=== PATIENT | female | born 1935 | race Caucasian/White ===

== ENCOUNTER 2018-04-09 17:03 | Inpatient (IN) | payer MEDICARE, MEDICAID ==
[~2018-04-09] VITALS: Ht 160 cm; Wt 79.2 kg
[~2018-04-09 17:03] MED LIST: ASPI-621 PO; ATOR10TA9 PO; FLUT1DIS3 INH; FLUT9.9S NAS; FOLI-17 PO; GABA300C10 PO; HYDR-3240 PO; LISI-167 PO; LORA10TA62 PO; MULT-6 PO; NYST1000 PO; OMEP40CA6 PO; OXYB5TAB7 PO; TRAZ150T62 PO; VENL150T PO
[2018-04-09] MEDS ORDERED: ALBUTEROL/IPRATROPIUM 2.5MG/0.5MG, 3 ML ONE ×2 (17:32→17:58)
[2018-04-09] MEDS: ALBUTEROL/IPRATROPIUM 2.5MG/0.5MG, 3 ML NPPB SCH (17:37)
[2018-04-09 17:54] LABS: BASOPHILS # (AUTO) 0.03 x10^3/uL (0-0.1); BASOPHILS % (AUTO) 0 % (0-1); EOSINOPHILS # (AUTO) 0.04 x10^3/uL (0-0.4); EOSINOPHILS % (AUTO) 0 % (1-7); LYMPHOCYTES # (AUTO) 1.42 x10^3/uL (1-3.4); LYMPHOCYTES % (AUTO) 11 % (22-44); MD NO; MEAN CORPUSCULAR HEMOGLOBIN 33.5 pg (27.0-34.8); MEAN CORPUSCULAR HGB CONC 33.8 g/dL (32.4-35.8); MEAN CORPUSCULAR VOLUME 98.9 fL (80-100); MEAN PLATELET VOLUME 6.9 fL (7.4-10.4); MONOCYTES # (AUTO) 1.31 x10^3/uL (0.2-0.8); MONOCYTES % (AUTO) 10 % (2-9); NEUTROPHILS % (AUTO) 78 % (42-75); PLATELET COUNT 510 x10^3/uL (130-400); RED BLOOD COUNT 3.74 x10^6/uL (3.82-5.3); RED CELL DISTRIBUTION WIDTH 13.5 % (9.6-15.2)
[2018-04-09 17:57] LABS: ALANINE AMINOTRANSFERASE 18 U/L (12-78); ALBUMIN 3.1 g/dL (3.4-5.0); ANION GAP 10 mmol/L (5-15); CALCIUM 8.6 mg/dL (8.5-10.1); CHLORIDE 100 mmol/L (98-107); CREATININE 1.21 mg/dL (0.55-1.02)
[2018-04-09] MEDS ORDERED: CEFTRIAXONE 1,000 MG in SODIUM CHLORIDE 0.9% 50 ML IV ONE (18:00)
[2018-04-09] MEDS ORDERED: SODIUM CHLORIDE 0.9% 1,000ML IVBOLUS ONE (18:00)
[2018-04-09] MEDS ORDERED: AZITHROMYCIN 500 MG in SODIUM CHLORIDE 0.9% 250 ML IV ONE (18:00)
[2018-04-09 18:01] LABS: ALKALINE PHOSPHATASE 101 U/L (45-117); BILIRUBIN,TOTAL 0.4 mg/dL (0.2-1.0); TOTAL PROTEIN 8.1 g/dL (6.4-8.2); TROPONIN I < 0.015 ng/mL (0.000-0.045)
[2018-04-09] MEDS ORDERED: CEFTRIAXONE PMX 1GM/50ML 50 ML ONE (18:05)
[2018-04-09] MEDS ORDERED: GUAIFENESIN/DM 200-20MG, 10ML UDC PO PRN (20:00)
[2018-04-09] MEDS ORDERED: ACETAMINOPHEN 325 MG TABLET PO PRN (20:00)
[2018-04-09] MEDS ORDERED: ONDANSETRON ODT 4 MG PO PRN (20:00)
[2018-04-09] MEDS ORDERED: POLYETHYLENE GLYCOL 17 GM PACKET PO PRN (20:00)
[2018-04-09] MEDS ORDERED: ENALAPRILAT 1.25 MG/ML, 2ML IVPush PRN (20:00)
[2018-04-09] MEDS ORDERED: NYSTATIN 500,000 UNITS/5 ML UDC PO SCH (20:30)
[2018-04-09] MEDS ORDERED: ALBUTEROL SULFATE 2.5 MG/3 ML NPPB PRN (20:30)
[2018-04-09] MEDS: ALBUTEROL/IPRATROPIUM 2.5MG/0.5MG, 3 ML HHN SCH (20:30)
[2018-04-09] MEDS ORDERED: FLUTICASONE NASAL SPRAY 16GM NAS SCH (21:00)
[2018-04-09] MEDS ORDERED: ATORVASTATIN 10 MG TABLET PO SCH (21:00)
[2018-04-09] MEDS: TRAZODONE 150MG TABLET PO SCH (21:07)
[2018-04-09] MEDS: SODIUM CHLORIDE 0.9% 1,000 ML IV SCH (21:07)
[2018-04-09] MEDS: HEPARIN 5,000 UNITS/ML, 1ML SQ SCH (21:08)
[2018-04-09 21:46] VITALS: BP 111/51
[2018-04-09] MEDS: methylPREDNISolone SOD SUCC 125 MG/2 ML IVPush SCH (23:22)
[2018-04-10] MEDS: ALBUTEROL/IPRATROPIUM 2.5MG/0.5MG, 3 ML HHN SCH ×5 (02:42→19:54)
[2018-04-10 03:10] VITALS: BP 94/50
[2018-04-10] MEDS: HEPARIN 5,000 UNITS/ML, 1ML SQ SCH ×3 (04:42→20:07)
[2018-04-10] MEDS: methylPREDNISolone SOD SUCC 125 MG/2 ML IVPush SCH ×2 (04:42→11:14)
[2018-04-10 04:45] LABS: BASOPHILS # (AUTO) 0.01 x10^3/uL (0-0.1); BASOPHILS % (AUTO) 0 % (0-1); EOSINOPHILS % (AUTO) 0 % (1-7); LYMPHOCYTES # (AUTO) 0.88 x10^3/uL (1-3.4); LYMPHOCYTES % (AUTO) 12 % (22-44); MD NO; MEAN CORPUSCULAR HEMOGLOBIN 33.7 pg (27.0-34.8); MEAN CORPUSCULAR HGB CONC 33.8 g/dL (32.4-35.8); MEAN CORPUSCULAR VOLUME 99.7 fL (80-100); MEAN PLATELET VOLUME 6.5 fL (7.4-10.4); MONOCYTES # (AUTO) 0.14 x10^3/uL (0.2-0.8); MONOCYTES % (AUTO) 2 % (2-9); NEUTROPHILS # (AUTO) 6.42 x10^3/uL (1.8-6.8); NEUTROPHILS % (AUTO) 86 % (42-75); PLATELET COUNT 423 x10^3/uL (130-400); RED BLOOD COUNT 3.06 x10^6/uL (3.82-5.3)
[2018-04-10 04:51] LABS: ANION GAP 8 mmol/L (5-15); CALCIUM 7.9 mg/dL (8.5-10.1); CHLORIDE 107 mmol/L (98-107)
[2018-04-10 04:52] LABS: CREATININE 1.17 mg/dL (0.55-1.02)
[2018-04-10] MEDS: SODIUM CHLORIDE 0.9% 1,000 ML IV SCH ×2 (07:01→16:05)
[2018-04-10 07:20] LABS: MICROSCOPIC INDICATED
[2018-04-10 07:24] VITALS: BP 96/54
[2018-04-10 07:30] LABS: CULTURE INDICATED? YES
[2018-04-10] MEDS: BUDESONIDE 0.5 MG/2 ML INHA NPPB SCH ×2 (08:40→19:54)
[2018-04-10] MEDS: SENNA/DOCUSATE TABLET PO SCH (09:00)
[2018-04-10] MEDS ORDERED: HYDROcodone/APAP 5/325 TABLET PO SCH (09:00)
[2018-04-10] MEDS ORDERED: OXYBUTYNIN CHLORIDE 5 MG TABLET PO SCH (09:00)
[2018-04-10] MEDS ORDERED: LORATADINE 10 MG TABLET PO SCH (09:00)
[2018-04-10] MEDS ORDERED: LISINOPRIL 10 MG TABLET PO SCH (09:00)
[2018-04-10] MEDS: AZITHROMYCIN 250 MG TABLET PO SCH (09:00)
[2018-04-10] MEDS ORDERED: FLUTICASONE/VILANTEROL 100-25MCG/INH INH SCH (09:00)
[2018-04-10] MEDS: OMEPRAZOLE 20 MG CAPSULE.DR PO SCH (11:13)
[2018-04-10] MEDS: VENLAFAXINE 75 MG CAP ER PO SCH (11:13)
[2018-04-10] MEDS: FOLIC ACID 1 MG TABLET PO SCH (11:13)
[2018-04-10] MEDS: GABAPENTIN 300 MG CAPSULE PO SCH (11:13)
[2018-04-10] MEDS: MULTIVITAMIN 1 TABLET PO SCH (11:13)
[2018-04-10] MEDS: ASPIRIN 81 MG TABLET EC PO SCH (11:13)
[2018-04-10 12:35] VITALS: BP 99/65
[2018-04-10 18:57] VITALS: BP 109/57
[2018-04-10] MEDS: TRAZODONE 150MG TABLET PO SCH (19:39)
[2018-04-10] MEDS: CEFDINIR 300 MG CAPSULE PO SCH (19:39)
[2018-04-10] MEDS ORDERED: CEFTRIAXONE 1,000 MG IM SCH (20:30)
[2018-04-10 20:54] LABS: RAPID INFLUENZA A Negative (Negative); RAPID INFLUENZA B Negative (Negative)
[2018-04-11] MEDS: SODIUM CHLORIDE 0.9% 1,000 ML IV SCH ×2 (01:53→09:19)
[2018-04-11 02:36] VITALS: BP 138/74
[2018-04-11] MEDS: ALBUTEROL/IPRATROPIUM 2.5MG/0.5MG, 3 ML HHN SCH ×4 (03:00→19:59)
[2018-04-11] MEDS: HEPARIN 5,000 UNITS/ML, 1ML SQ SCH ×3 (04:13→21:40)
[2018-04-11 07:06] VITALS: BP 110/64
[2018-04-11] MEDS: SENNA/DOCUSATE TABLET PO SCH (09:17)
[2018-04-11] MEDS: FOLIC ACID 1 MG TABLET PO SCH (09:17)
[2018-04-11] MEDS: MULTIVITAMIN 1 TABLET PO SCH (09:17)
[2018-04-11] MEDS: ASPIRIN 81 MG TABLET EC PO SCH (09:17)
[2018-04-11] MEDS: GABAPENTIN 300 MG CAPSULE PO SCH (09:17)
[2018-04-11] MEDS: VENLAFAXINE 75 MG CAP ER PO SCH (09:17)
[2018-04-11] MEDS: CEFDINIR 300 MG CAPSULE PO SCH ×2 (09:18→21:33)
[2018-04-11] MEDS: AZITHROMYCIN 250 MG TABLET PO SCH (09:18)
[2018-04-11] MEDS: OMEPRAZOLE 20 MG CAPSULE.DR PO SCH (09:18)
[2018-04-11] MEDS: BUDESONIDE 0.5 MG/2 ML INHA NPPB SCH ×2 (09:45→19:59)
[2018-04-11 12:59] VITALS: BP 116/71
[2018-04-11 18:46] VITALS: BP 148/80
[2018-04-11] MEDS: TRAZODONE 150MG TABLET PO SCH (21:33)
[2018-04-12 01:52] VITALS: BP 147/78
[2018-04-12] MEDS: ALBUTEROL/IPRATROPIUM 2.5MG/0.5MG, 3 ML HHN SCH ×5 (02:39→23:10)
[2018-04-12] MEDS: HEPARIN 5,000 UNITS/ML, 1ML SQ SCH ×2 (06:09→15:53)
[2018-04-12] MEDS: BUDESONIDE 0.5 MG/2 ML INHA NPPB SCH ×2 (07:05→19:03)
[2018-04-12 08:21] VITALS: BP 149/82
[2018-04-12] MEDS: SENNA/DOCUSATE TABLET PO SCH (09:00)
[2018-04-12] MEDS: VENLAFAXINE 75 MG CAP ER PO SCH (10:48)
[2018-04-12] MEDS: FOLIC ACID 1 MG TABLET PO SCH (10:48)
[2018-04-12] MEDS: MULTIVITAMIN 1 TABLET PO SCH (10:49)
[2018-04-12] MEDS: ASPIRIN 81 MG TABLET EC PO SCH (10:49)
[2018-04-12] MEDS: OMEPRAZOLE 20 MG CAPSULE.DR PO SCH (10:49)
[2018-04-12] MEDS: GABAPENTIN 300 MG CAPSULE PO SCH (10:49)
[2018-04-12] MEDS: CEFDINIR 300 MG CAPSULE PO SCH ×2 (10:49→20:46)
[2018-04-12] MEDS: BENZONATATE 100 MG CAPSULE PO SCH ×3 (10:49→20:46)
[2018-04-12] MEDS: AZITHROMYCIN 250 MG TABLET PO SCH (10:54)
[2018-04-12 14:22] LABS: BASOPHILS # (AUTO) 0.02 x10^3/uL (0-0.1); BASOPHILS % (AUTO) 0 % (0-1); EOSINOPHILS % (AUTO) 0 % (1-7); LYMPHOCYTES # (AUTO) 0.85 x10^3/uL (1-3.4); LYMPHOCYTES % (AUTO) 9 % (22-44); MD NO; MEAN CORPUSCULAR HEMOGLOBIN 32.3 pg (27.0-34.8); MEAN CORPUSCULAR VOLUME 97.9 fL (80-100); MEAN PLATELET VOLUME 6.2 fL (7.4-10.4); MONOCYTES # (AUTO) 0.77 x10^3/uL (0.2-0.8); MONOCYTES % (AUTO) 8 % (2-9); NEUTROPHILS # (AUTO) 8.06 x10^3/uL (1.8-6.8); NEUTROPHILS % (AUTO) 83 % (42-75); PLATELET COUNT 504 x10^3/uL (130-400); RED BLOOD COUNT 3.14 x10^6/uL (3.82-5.3)
[2018-04-12 14:32] LABS: ANION GAP 8 mmol/L (5-15); CALCIUM 8.7 mg/dL (8.5-10.1); CHLORIDE 110 mmol/L (98-107); CREATININE 1.15 mg/dL (0.55-1.02)
[2018-04-12 19:22] VITALS: BP 112/70
[2018-04-12] MEDS: TRAZODONE 150MG TABLET PO SCH (20:46)
[2018-04-13] MEDS: HEPARIN 5,000 UNITS/ML, 1ML SQ SCH ×3 (01:21→17:05)
[2018-04-13 01:23] VITALS: BP 160/89
[2018-04-13 06:30] VITALS: BP 145/80
[2018-04-13] MEDS ORDERED: LISINOPRIL 10 MG TABLET PO ONE (06:30)
[2018-04-13 06:58] VITALS: BP 145/83
[2018-04-13] MEDS: BUDESONIDE 0.5 MG/2 ML INHA NPPB SCH ×2 (07:35→19:25)
[2018-04-13] MEDS: ALBUTEROL/IPRATROPIUM 2.5MG/0.5MG, 3 ML HHN SCH ×5 (07:35→23:00)
[2018-04-13] MEDS ORDERED: LORATADINE 10 MG TABLET PO SCH (09:00)
[2018-04-13] MEDS ORDERED: OXYBUTYNIN CHLORIDE 5 MG TABLET PO SCH (09:00)
[2018-04-13] MEDS ORDERED: FUROSEMIDE 20 MG/2 ML IV ONE (10:00)
[2018-04-13] MEDS: BENZONATATE 100 MG CAPSULE PO SCH ×3 (10:54→20:33)
[2018-04-13] MEDS: MULTIVITAMIN 1 TABLET PO SCH (10:54)
[2018-04-13] MEDS: FOLIC ACID 1 MG TABLET PO SCH (10:54)
[2018-04-13] MEDS: AZITHROMYCIN 250 MG TABLET PO SCH (10:55)
[2018-04-13] MEDS: OMEPRAZOLE 20 MG CAPSULE.DR PO SCH (10:55)
[2018-04-13] MEDS: ASPIRIN 81 MG TABLET EC PO SCH (10:55)
[2018-04-13] MEDS: CEFDINIR 300 MG CAPSULE PO SCH ×2 (10:56→20:33)
[2018-04-13] MEDS: GABAPENTIN 300 MG CAPSULE PO SCH (10:56)
[2018-04-13] MEDS: VENLAFAXINE 75 MG CAP ER PO SCH (10:56)
[2018-04-13] MEDS: SENNA/DOCUSATE TABLET PO SCH (10:56)
[2018-04-13] MEDS ORDERED: GABAPENTIN 300 MG CAPSULE PO PRN ×2 (11:30)
[2018-04-13 12:10] VITALS: BP 116/78
[2018-04-13 19:12] VITALS: BP 132/76
[2018-04-13] MEDS ORDERED: TRAZODONE 50MG TABLET PO SCH (21:00)
[2018-04-13] MEDS ORDERED: ATORVASTATIN 10 MG TABLET PO SCH (21:00)
[2018-04-14] MEDS: HEPARIN 5,000 UNITS/ML, 1ML SQ SCH ×3 (01:12→17:14)
[2018-04-14 01:22] VITALS: BP 127/72
[2018-04-14] MEDS: ALBUTEROL/IPRATROPIUM 2.5MG/0.5MG, 3 ML HHN SCH ×3 (06:00→14:00)
[2018-04-14] MEDS: BUDESONIDE 0.5 MG/2 ML INHA NPPB SCH (06:57)
[2018-04-14 07:22] VITALS: BP 166/95
[2018-04-14] MEDS ORDERED: POLYETHYLENE GLYCOL 17 GM PACKET PO SCH (09:00)
[2018-04-14] MEDS ORDERED: VENLAFAXINE 75 MG CAP ER PO SCH (09:00)
[2018-04-14] MEDS: SENNA/DOCUSATE TABLET PO SCH (09:31)
[2018-04-14] MEDS: MULTIVITAMIN 1 TABLET PO SCH (09:31)
[2018-04-14] MEDS: BENZONATATE 100 MG CAPSULE PO SCH ×2 (09:32→17:15)
[2018-04-14] MEDS: OMEPRAZOLE 20 MG CAPSULE.DR PO SCH (09:32)
[2018-04-14] MEDS: FOLIC ACID 1 MG TABLET PO SCH (09:32)
[2018-04-14] MEDS: CEFDINIR 300 MG CAPSULE PO SCH (09:32)
[2018-04-14] MEDS: ASPIRIN 81 MG TABLET EC PO SCH (09:32)
[2018-04-14 12:30] VITALS: BP 152/82
[2018-04-14] MEDS ORDERED: TRAZ-136 PO (13:56)
[2018-04-14] MEDS ORDERED: PRED20TA PO (13:56)
[2018-04-14] MEDS ORDERED: GABA300C10 PO (13:56)
[2018-04-14] MEDS ORDERED: CEFD300C37 PO (13:56)
[2018-04-14] MEDS ORDERED: VENL75CA6 PO (13:56)
[2018-04-14] MEDS ORDERED: BENZ-17 PO (13:56)
== END 2018-04-14 18:14 | disposition home health service (06) | DRG 871 ==
LOC: ED 18:17 → EDIP 19:04 → 3NW 20:10
PROVIDERS: ADMIT Family Medicine; ATTEND Family Medicine
DX: A41.9 Sepsis, unspecified organism (principal); J15.9 Unspecified bacterial pneumonia; J44.0 Chronic obstructive pulmonary disease with (acute) lower respiratory infection; N17.9 Acute kidney failure, unspecified; I42.9 Cardiomyopathy, unspecified; J44.1 Chronic obstructive pulmonary disease with (acute) exacerbation; Z79.899 Other long term (current) drug therapy; F03.90 Unspecified dementia, unspecified severity, without behavioral disturbance, psychotic disturbance, mood disturbance, and anxiety; Z99.81 Dependence on supplemental oxygen; I10 Essential (primary) hypertension; Z85.118 Personal history of other malignant neoplasm of bronchus and lung; R09.02 Hypoxemia; E86.0 Dehydration; Z51.5 Encounter for palliative care; Z90.2 Acquired absence of lung [part of]; G89.29 Other chronic pain; G47.00 Insomnia, unspecified; E78.5 Hyperlipidemia, unspecified; Z82.5 Family history of asthma and other chronic lower respiratory diseases; Z79.82 Long term (current) use of aspirin
CPT/HCPCS: 36415; 71045; 80048; 80053; 81001; 83605; 83880; 84484; 85025; 87040; 87070; 87086; 87205; 87265; 87400; 87633; 93005; 94640; 99285; G0378; J0456; J0696; J1644; J7620; J7626; J1940; J2930; J7030; J7050; J7512